=== PATIENT | female | born 1995 | race Caucasian/White ===

== ENCOUNTER 2024-03-15 15:37 | Emergency (ER) | payer MEDICAID, SELFPAY ==
[2024-03-15 15:41] VITALS: BP 109/94; PULSE 98; TEMP 36.9; O2SAT 100; BMI 35.0
--- NOTE | 2024-03-15 16:01 | XR_ITS ---
The [address] [address] Patient Name: BRI DOYLE MRN: [id number] date: 1995 Sex: F Assigned Patient Location: ER Current Patient Location: ER Accession/Order Number: [id number] Exam Date: 03/15/2024 16:05 Report Date: 03/15/2024 16:44 At the request of: BERNIE ARDON Procedure: XR foot RT min 3V EXAM: XR foot RT min 3V HISTORY: foot pain COMPARISON: None TECHNIQUE: 3 views of the right foot were obtained. FINDINGS: No definite acute fracture or dislocation. Tiny plantar and posterior calcaneal spurs. Soft tissues are grossly within normal limits. XR/XR foot RT min 3V IMPRESSION: Right foot study fails to demonstrate definite acute fracture or dislocation. Follow-up as needed. Electronically authenticated by: BEAU MAYS Date: 03/15/2024 16:44
--- NOTE | 2024-03-15 16:01 | ED_ITS ---
HPI - Extremity Problem General Chief complaint: Extremity Problem, Nontraumatic Stated complaint: Lower Extremity Pain, top of right foot Time Seen by Provider: 03/15/24 15:46 Source: patient Mode of arrival: walk-in History of Present Illness HPI Narrative: Patient is a 28-year-old female who presents to the emergency department for 2- day history of pain in the top of the foot. She states she used her right foot to slam on a break 2 days ago and is now noticing pain in the dorsum of the foot. No direct injuries. She is ambulatory. She has not noticed any swelling, redness. No numbness or tingling to the toes. She denies any right ankle pain. She is not concerned for . Related Data Home Medications ?Medication ?Instructions ?Recorded ?Confirmed bupropion HCl 75 mg tablet 75 mg PO QAM 03/15/24 03/15/24 metformin 500 mg tablet,extended 1,000 mg PO BID 03/15/24 03/15/24 release 24 hr phentermine 37.5 mg tablet 37.5 mg PO QAM 03/15/24 03/15/24 sertraline 50 mg tablet 50 mg PO QAM 03/15/24 03/15/24 topiramate 25 mg tablet 25 mg PO BID 03/15/24 03/15/24 Previous Rx's ?Medication ?Instructions ?Recorded ketorolac 10 mg tablet 10 mg PO TID PRN pain #10 tabs 03/15/24 Allergies Allergy/AdvReac Type Severity Reaction Status Date / Time nickel Allergy Severe Unknown Verified 03/15/24 15:45 Review of Systems ROS Constitutional Denies: fever or chills Ears, nose, mouth, and throat Denies: throat pain or nasal congestion Cardiovascular Denies: chest pain Respiratory Denies: shortness of breath Gastrointestinal Denies: abdominal pain, nausea or vomiting Musculoskeletal Reports: extremity pain; Denies: back pain or neck pain Integumentary/Breast Denies: rash Hematologic/Lymphatic Denies: easy bruising or easy bleeding Exam Narrative Exam Narrative: Gen.: Awake, alert, in no distress Head: Normocephalic, atraumatic ENT: Moist mucous membranes Respiratory: No respiratory distress Extremities: 2+ right DP pulse. Normal flexion and extension of the toes of the right foot. No appreciable ecchymosis, erythema or swelling. No bony tenderness of the right ankle. Psych: Normal mood and affect Neuro: No focal neuro deficit Skin: Warm, dry, intact Constitutional Vital Signs, click to edit/add: Last Vital Signs Temp 98.4 F 03/15/24 15:41 Pulse 98 H 03/15/24 15:41 Resp 18 03/15/24 15:41 BP 109/94 H 03/15/24 15:41 Pulse Ox 100 03/15/24 15:41 O2 Del Method Room Air 03/15/24 15:41 Course Vital Signs Vital signs: Vital Signs Temperature 98.4 F 03/15/24 15:41 Pulse Rate 98 H 03/15/24 15:41 Respiratory Rate 18 03/15/24 15:41 Blood Pressure 109/94 H 03/15/24 15:41 Pulse Oximetry 100 03/15/24 15:41 Oxygen Delivery Method Room Air 03/15/24 15:41 Temperature 98.4 F 03/15/24 15:41 Pulse Rate 98 H 03/15/24 15:41 Respiratory Rate 18 03/15/24 15:41 Blood Pressure 109/94 H 03/15/24 15:41 Pulse Oximetry 100 03/15/24 15:41 Oxygen Delivery Method Room Air 03/15/24 15:41 MDM - Extremity (Nontraumatic) MDM Narrative Medical decision making narrative: X-rays are unremarkable, patient placed in an Teo wrap and given NSAIDs for home. Follow-up with PCP and return to the ER if symptoms change or worsen. SUPERVISED APC VISIT, PHYSICIAN ATTESTATION: Based on the medical record the care appears appropriate. ? Medical Records Attestation: I reviewed the patient's medical records. Imaging Data xr foot: Attestation: I have reviewed the pertinent imaging results. Radiologist's impression: ITS Impressions Foot X-Ray 03/15/24 16:01 IMPRESSION: Right foot study fails to demonstrate definite acute fracture or dislocation. Follow-up as needed. Electronically authenticated by: BEAU MAYS Date: 03/15/2024 16:44 Discharge Plan Discharge Stand Alone Forms: Portal Instructions Chief Complaint: Extremity Problem, Nontraumatic Clinical Impression: Sprain of right foot Patient Disposition: Home, Self-Care Time of Disposition Decision: 16:52 Condition: Good Prescriptions / Home Meds: New ketorolac 10 mg tablet 10 mg PO TID PRN (Reason: pain) Qty: 10 0RF No Action bupropion HCl 75 mg tablet 75 mg PO QAM metformin 500 mg tablet extended release 24 hr 1,000 mg PO BID phentermine 37.5 mg tablet 37.5 mg PO QAM sertraline 50 mg tablet 50 mg PO QAM topiramate 25 mg tablet 25 mg PO BID Print Language: Nepali Instructions: Foot Sprain (ED) Referrals: Kaur Cook PILE OPERATOR [Primary Care Provider] - 1 week
--- NOTE | 2024-03-15 16:09 | PC.NURSE ---
no swelling, no bruising and skin intact.
== END 2024-03-15 17:06 | disposition home or self-care (01) ==
PROVIDERS: Emergency Provider Student in an Organized Health Care Education/Training Program; PCP Nurse Practitioner
DX: S93.601A Unspecified sprain of right foot, initial encounter (principal); X50.0XXA Overexertion from strenuous movement or load, initial encounter
CPT/HCPCS: 73630; 99283